=== PATIENT | female | born 1950 | race Two or more races ===

== ENCOUNTER → 2024-06-07 | Outpatient (CLI) | payer MEDICARE, MEDICAID, SELFPAY ==
--- NOTE | 2024-06-07 10:03 | XR_ITS ---
Examination:Left hip AP, lateral, AP pelvis 3 views Technique: Hip AP lateral, AP pelvis, 3 views Exam date and time:June 07, 2024 1105 hours INDICATIONS: Patient fell today with injury of the left hip, left hip pain FINDINGS: Fracture unchanged in position greater tuberosity compared with May 18, 2024 Intertrochanteric region appears intact Right hip bones of the pelvis intact IMPRESSION: Stable alignment fracture greater trochanter left hip without significant healing.
--- NOTE | 2024-06-07 10:03 | XR_ITS ---
Examination: Bilateral knees, standing AP single view Technique: Standing AP bilateral knees, standing AP single view Exam date and time: June 07, 2024 1115 hours INDICATIONS: Knee pain months FINDINGS: Advanced narrowing medial joint spaces bilaterally Significant osteoarthritis lateral joint spaces Moderate osteopenia No fracture or dislocation IMPRESSION: Advanced narrowing medial joint spaces bilaterally
== END | disposition home or self-care (01) ==
PROVIDERS: Referring Provider Orthopaedic Surgery; Visit Provider Orthopaedic Surgery
DX: M25.862 Other specified joint disorders, left knee (principal); M25.861 Other specified joint disorders, right knee; S72.002A Fracture of unspecified part of neck of left femur, initial encounter for closed fracture; W19.XXXA Unspecified fall, initial encounter
CPT/HCPCS: 73502; 73565

== ENCOUNTER → 2024-08-24 | Outpatient (CLI) | payer MEDICARE, MEDICAID, SELFPAY ==
--- NOTE | 2024-08-24 10:31 | XR_ITS ---
Examination: Knee bilateral, 6 views Technique: Knee AP, lateral, oblique each knee total 6 views Date and time of exam: August 24, 2024 1102 hours INDICATIONS: Bilateral knee pain beginning several months ago. FINDINGS: Moderate osteopenia Bilateral advanced tricompartment osteoarthritis, most severe medial patellofemoral joints No fractures IMPRESSION: Bilateral advanced tricompartment osteoarthritis
== END | disposition home or self-care (01) ==
PROVIDERS: PCP Internal Medicine; Referring Provider Internal Medicine; Visit Provider Internal Medicine
DX: M17.0 Bilateral primary osteoarthritis of knee (principal)
CPT/HCPCS: 73562